=== PATIENT | male | born 1985 | race Asian ===

== ENCOUNTER 2016-09-29 15:01 | Emergency (ER) | payer OTHER ==
[~2016-09-29] VITALS: Ht 170.2 cm; Wt 57.1 kg
[2016-09-29 15:37] VITALS: BP 115/73; PULSE 63; TEMP 36.7; O2SAT 96; Ht 170.2 cm; Wt 57.1 kg
[2016-09-29] MEDS ORDERED: PROPARACAINE HCL 0.5% OP SOLN 15 ML BTL OP STA (16:10)
[2016-09-29] MEDS ORDERED: CIPROFLOXACIN HCL 0.3% OP SOLN 2.5 ML BTL OP STA (16:29)
[2016-09-29] MEDS ORDERED: HYDR-5688 PO (16:31)
--- NOTE | 2016-09-29 16:33 | EMERGENCY ROOM VISIT NOTE ---
History First contact with patient: 16:03 Chief Complaint: EYE ASSESSMENT Stated Complaint: SCRATED CONJUNCTIVA R EYE History of Present Illness The patient is a 31 year old male who presents to the Emergency Room via private vehicle coming by female with complaints of "scratched conjunctiva right eye". The patient states that yesterday he rubbed his right eye while he was driving after he thought something had gotten into his right eye. He states that he tried to rinse it out with water and it produced a burning sensation. He states that yesterday the eye was reddened, but that has now subsided. He states that when he woke up today it was painful when he blinked the right eye. The pain is a 5/10 and radiates to the right side of the face. He has not had yet for pain. He has a history of corneal abrasion of which he states feels exactly like this. He denies any vision changes, or contacts lens. Review of Systems A complete 10-point Review of Systems was discussed with the patient, with pertinent positives and negatives listed in the History of Present Illness. All remaining Review of Systems questions can be considered negative unless otherwise specified. Past Medical/Surgical History A complete 6-point Review of Systems was discussed with the patient, with pertinent positives and negatives listed in the History of Present Illness. All remaining Review of Systems questions can be considered negative unless otherwise specified. Family History No pertinent Social History Smoking Status: Never Smoker Social History: No pertinent Current/Historical Medications Scheduled PRN Hydrocodone/Acetaminophen 5MG/325MG ([place] 5MG/325MG), 1-2 TABLET PO Q6 PRN for Pain Allergies Coded Allergies: No Known Allergies (Unverified , 09/29/16) Physical Exam Vital Signs Date Time Temp Pulse Resp B/P (MAP) Pulse Ox O2 Delivery O2 Flow Rate FiO2 09/29/16 15:37 36.7 63 18 115/73 96 Room Air Right Eye Acuity: 20/20 Uncorrected Left Eye Acuity: 20/15 Uncorrected Physical Exam VITAL SIGNS - Vital signs and nursing notes were reviewed. Patient is afebrile , normotensive, non-tachycardic and is saturating well on room air 96%. GENERAL -31-year-old male appearing his stated age. Communicates well with provider and answers questions appropriately. HEAD - Normocephalic, Atraumatic. No Beaver's Sign or Raccoon's Eyes. No depressed skull fractures palpable. EYES - PERRL with EOMI bilaterally. Sclera without noticeable foreign body or excoriations. There is minimal right bulbar injection noted in the right eye. Without subconjunctival hemorrhage. Palpebral conjunctiva pink and moist with no injection or discharge noted. Brief fundoscopic exam demonstrates no AV- nicking, cotton wool spots, or flame hemorrhages. Slit lamp examination performed as further described. EARS - No deformities of external structures noted on gross examination bilaterally. Handle of malleus, umbo, cone of light, pars tensa/flaccid all easily visualized. NOSE - Midline and without cyanosis. Without discharge. MOUTH/OROPHARYNX - Without perioral cyanosis. Tongue midline with equal elevation of palate bilaterally. No tonsillar hypertrophy, erythema, or exudates noted. Fair dentition noted. NECK - FROM assessed. No cervical lymphadenopathy noted. Slit Lamp Examination was performed of the R eye(s). Alcaine drops were applied to the affected eye(s) for proper anesthetization. The affected eye(s) were stained with Fluorescein stain to precipitate adequate visualization of any conjunctival/scleral excoriations or ulcers. The patient's face was comfortably rested on the chin guard of the slit lamp apparatus. The lights were dimmed and the affected eye(s) were thoroughly examined under microscopy using the blue light. No uptake was present within the eyes. Additionally, the eye(s) were examined under microscopy using the regular light. Close examination revealed no abnormality. Patient tolerated the procedure well and no complications were met. An Automated Tonometer was utilized to obtain bilateral orbital pressures. The pressures in the LEFT eye were found to be 12, 19 with an average of 15.5. The pressures in the RIGHT eye were found to be 19, 16, 14 with an average of 16.3. Patient tolerated the procedure well and no complications were met. Medical Decision & Procedures Medications Administered Medications (Trade) Dose Ordered Sig/Wing Route Start Time Stop Time Status Last Admin Dose Admin Ciprofloxacin HCl (Ciprofloxacin 0.3% Op Soln) 2 drops NOW STAT OP 09/29/16 16:29 09/29/16 16:30 DC 09/29/16 16:44 2 DROPS Medical Decision Patient was seen and evaluated as above. After obtaining a thorough history and physical examination the above workup was performed. Patient presented to us today with a foreign body like sensation to his right eye. There is no evidence of facial cellulitis or orbital sialitis on examination. His vital signs are stable. He subjectively reports his symptoms feel exactly to what he experienced in the past when he had a corneal abrasion. Examination is negative except for slight bulbar conjunctival injection. I suspect the patient is likely experiencing irritation to the eye secondary to him rubbing the eye and he may have one point had a small foreign body in the eye however at this time he does not appear to be such. I will treat him with Ciloxan eyedrops and a short course of pain medication secondary to his symptoms. He was educated upon worrisome symptoms in which to return, had questions prior to discharge, and was discharged home in good condition. In the evaluation and treatment of this patient, the following differential diagnoses were considered: Corneal Abrasion, Conjunctivitis, Eye Contusion, Globe Injury, Orbital Floor Injury (Blowout Fracture), Corneal Ulcer, Keratitis , Herpes Zoster Opthalmic, Blepharitis, Orbital Cellulitis, Iritis, Scleritis/ Episcleritis, Uveitis, Temporal Arteritis, Subconjunctival Hemorrhage. [place] Drug Monitoring Program Search Results: patient reviewed within database, no issues identified Impression Primary Impression: Corneal irritation of right eye Additional Impression: Conjunctivitis Departure Information Dispostion Home / Self-Care Condition GOOD Prescriptions Hydrocodone/Acetaminophen 5MG/325MG ([place] 5MG/325MG) Tab 1-2 TABLET PO Q6 Y for Pain, #15 TAB For Initial Treatment Prov: Benton Dennis PA-C 09/29/16 Referrals No Doctor, Assigned (PCP) Jhonatan Ruiz D.O. Patient Instructions My [facility] Additional Instructions You have been treated in the Emergency Department today for your Corneal and scleral irritation/conjunctivitis. You have been prescribed [place] to be used for pain control. This is a narcotic medication. You cannot drive or consume alcohol while on this medicine. This medicine should only be used for pain that cannot be controlled with over-the- counter pain medicines. You have been prescribed Ciloxan eye drops. This is an antibiotic which will help to prevent an infection from developing in your affected eye. You should use 2 drops in the affected eye every 2 hours while awake for the first 2 days, then every 4 hours for the remaining 5 days. This is a total of a 7-day course for these antibiotic eye drops. For pain control, you can use the following [id number] medicines (if >12 yo): PLEASE NO TYLENOL WITH THE NORCO! - Regular strength (200 mg/tab) Advil (ibuprofen) 1-2 tabs every 4-6 hours as needed. Do not exceed a dose of 3200 mg per day. You should relax in a quiet, dark place for the rest of the day. You should wear sunglasses while outside for the next few days until your eyes are not as sensitive to the light. You should schedule a follow-up appointment in 2-3 days with your Primary Care Provider or an Eye Doctor (Architectural Practice Manager) for further evaluation and treatment of your eye pain Return to the Emergency Department if your current symptoms worsen despite treatment course outlined above, or if you develop any of the following symptoms : intractable pain, visual disturbances, loss of vision, increased redness, swelling, drainage, or if you develop a fever. Please return to the emergency department with any new/concerning symptoms. Problem Qualifiers Additional Impression: Conjunctivitis Conjunctivitis type: acute Laterality: right
== END 2016-09-29 16:46 | disposition home or self-care (01) ==
LOC: C.EDB 15:02 → C.EDD 16:46
DX: H10.31 Unspecified acute conjunctivitis, right eye (principal)